=== PATIENT | female | born 1940 | race Caucasian/White ===

== ENCOUNTER 2024-06-21 12:26 | Emergency (ER) | payer MEDICARE, BC, SELFPAY ==
[2024-06-21 12:35] VITALS: BP 134/60; PULSE 72; RESP 17; TEMP 36.6; O2SAT 97; BMI 34.7
--- NOTE | 2024-06-21 12:49 | ED.RECABL ---
HPI - Recheck/Abnormal Lab/Rx General Chief Complaint: Recheck/Abnormal Lab/Rx Stated Complaint: Shingles, cant mng the px Time Seen by Provider: 06/21/24 12:30 Source: patient and family Mode of arrival: Wheelchair History of Present Illness HPI narrative: 84-year-old female presents requesting help with the pain management. Diagnosed with shingles 2 weeks ago and has completed prednisone and valacyclovir treatment. She has persistent pain in her face and her left ear. She states that she was prescribed oxycodone by her doctor, however it was too intense and she felt extremely drugged on this medication. Related Data Home Medications Medication Instructions Recorded Confirmed VITAMIN D (Vitamin D3) 4,000 PO QDAY ##0 08/03/17 aspirin 81 mg tablet,delayed 81 mg PO QDAY ##0 08/03/17 release budesonide-formoterol HFA 80 1 inh INH BID ##0 08/03/17 mcg-4.5 mcg/actuation aerosol inhaler (Symbicort) fexofenadine 180 mg tablet 180 mg PO QDAY ##0 08/03/17 losartan 25 mg tablet PO QDAY ##0 08/03/17 omega 9-qas-pwb-fish oil 1,000 mg ##0 08/03/17 (120 mg-180 mg) capsule (Fish Oil) omeprazole 20 mg capsule,delayed 20 mg PO QDAY ##0 08/03/17 release thyroid (pork) 60 mg tablet ##0 08/03/17 ([place] Thyroid) Previous Rx's Medication Instructions Recorded tramadol 50 mg tablet 50 mg PO Q8H PRN pain #14 tabs 06/21/24 Allergies Allergy/AdvReac Type Severity Reaction Status Date / Time phenobarbital [PHENOBARBITAL] Allergy Unknown Verified 06/21/24 12:39 Patient History Social History Smoking Status: Never smoker Smoking Status: Never smoker alcohol intake frequency: other Substance Use Type: does not use Exam Initial Vital Signs Initial Vital Signs: Vital Signs Temperature 98 F 06/21/24 12:35 Pulse Rate 72 06/21/24 12:35 Respiratory Rate 17 06/21/24 12:35 Blood Pressure 134/60 06/21/24 12:35 Pulse Oximetry 97 06/21/24 12:35 Oxygen Delivery Method Room Air 06/21/24 12:35 Const: Awake, alert, no acute distress, nontoxic appearing HEENT: PERRL, EOMI, TM normal, no obvious lesions in nose Skin: Warm, Dry, intact, no rashes Neuro: AO x3, CN II-XII grossly intact, moves all extremities Course Orders Ordered: Discontinued Medications Tramadol HCl (Tramadol 50 Mg Tablet) 50 mg PO NOW ONE Stop: 06/21/24 12:50 Vital Signs Vital signs: Vital Signs - 8 hr 06/21/24 12:35 Temperature 98 F Pulse Rate 72 Respiratory Rate 17 Blood Pressure 134/60 Pulse Oximetry 97 Oxygen Delivery Method Room Air MDM - Recheck/Abnormal Lab/Rx MDM Narrative Medical decision making narrative: Patient requesting help with the pain management. Is on Tylenol and gabapentin already. Patient counseled to no longer take the oxycodone, changed to tramadol. First dose given in emergency department. Discharge Plan Departure Patient Disposition: Home Clinical Impression: Acute pain associated with herpes zoster Instructions: DI for Shingles Activity Restrictions/Additional Instructions: You may continue to take Tylenol as needed for pain along with the medications prescribed. Make sure to take a stool softener with this medication as it can cause constipation. Prescriptions: New tramadol 50 mg tablet 50 mg PO Q8H PRN (Reason: pain) Qty: 14 0RF No Action losartan 25 mg tablet PO QDAY Qty: 0 omeprazole 20 MG capsule,delayed release(DR/EC) 20 mg PO QDAY Qty: 0 budesonide-formoterol [Symbicort] 80 MCG/4.5 MCG HFA aerosol inhaler 1 inh INH BID Qty: 0 aspirin 81 MG tablet,delayed release (DR/EC) 81 mg PO QDAY Qty: 0 thyroid (pork) [[place] Thyroid] 60 mg tablet Qty: 0 omega 4-ymi-anw-fish oil [Fish Oil] 1,000 MG capsule Qty: 0 VITAMIN D (Vitamin D3) 4,000 PO QDAY Qty: 0 fexofenadine 180 MG tablet 180 mg PO QDAY Qty: 0 Referrals: Morgan Garcia MD [Primary Care Provider] - Stand Alone Forms: Patient Portal/API
[2024-06-21] MEDS: TRAMADOL 50 MG TABLET PO (12:58)
== END 2024-06-21 12:50 | disposition home or self-care (01) ==
PROVIDERS: Emergency Provider Emergency Medicine; Family Provider Family Medicine; PCP Family Medicine
DX: B02.9 Zoster without complications (principal)
CPT/HCPCS: 99283